=== PATIENT | female | born 1935 | race Caucasian/White ===

== ENCOUNTER 2022-07-01 09:47 | Outpatient (CLI) | payer OTHER, SELFPAY | END 2022-07-01 09:48 | disposition home or self-care (01) | PROVIDERS: PCP Internal Medicine; Visit Provider Family Medicine | DX: M51.36 Other intervertebral disc degeneration, lumbar region (principal); M54.16 Radiculopathy, lumbar region | CPT/HCPCS: 62323; J0702; Q9966 ==

== ENCOUNTER 2023-02-17 08:21 | Outpatient (CLI) | payer OTHER, SELFPAY | END 2023-02-17 08:22 | disposition home or self-care (01) | PROVIDERS: PCP Internal Medicine; Visit Provider Family Medicine | DX: M54.16 Radiculopathy, lumbar region (principal) | CPT/HCPCS: 64483; J1100; Q9966 ==